=== PATIENT | male | born 1950 | race Caucasian/White ===

== ENCOUNTER 2016-09-22 09:35 | Emergency (ER) | payer MEDICARE, OTHER ==
[2016-09-22] MEDS ORDERED: LIDOCAINE HCL 2% 20 ML VIAL ONE (10:16)
[2016-09-22] MEDS ORDERED: CEPHALEXIN MONOHYDRATE 250 MG CAPSULE PO ONE (10:47)
--- NOTE | 2016-09-22 11:36 | ER PHYSICIAN DOCUMENTATION ---
Physician Documentation [facility] Name:Sanchez Cardenas Age:66 yrs Sex:Male :1950 Arrival Date:09/22/2016 Time:09:35 Bed1 Private MD:Omar Lizarraga ED, John Disposition: 09/22/16 10:29 Discharged to Home/Self Care. Impression: Finger Laceration, Amputation of Fingertip. - Condition is Good. - Discharge Instructions: FINGER LACERATION - LACERATION, Hand. - Prescriptions for Keflex 500 mg Oral - take 1 capsule by ORAL route every 12 hours for 5 days; 10 capsule. - Medical Reconciliation form form. - Follow up: Emergency Department; When: 10 days; Reason: Continuance of care. - Problem is new. - Symptoms have improved. HPI: 09/22 10:24 This 66 yrs old Male presents to ER with complaints of Open Wound To Finger. jm 10:00 The patient or guardian reports injury, a laceration. The complaints affect the palmar jm aspect of distal phalanx of left middle finger and palmar aspect of distal phalanx of left ring finger. 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 . Onset: The symptom(s)/episode began/occurred just prior to arrival. The patient has not experienced similar symptoms in the past. Historical: - Allergies: No known drug Allergies; - Home Meds: 1. BPH med - PMHx: BPH; - PSHx: Unable to obtain; - Tetanus: < 10 years. - Ebola Screening: : Patient negative for fever greater than or equal to 101.5 degrees Fahrenheit, and additional compatible Ebola Virus Disease symptoms. Patient denies exposure to infectious person. Patient denies travel to an Ebola-affected area in the 21 days before illness onset. No symptoms or risks identified at this time. . - Immunization history: Flu Vaccine unknown. - Social history: Smoking status: Patient states former smoker of tobacco. ROS: 10:00 MS/extremity: Positive for laceration, pain, Negative for jm 10:00 Skin: Positive for laceration(s). 10:00 Psych: Negative for drug dependence, alcohol dependence. 10:00 All other systems are negative. Exam: 10:00 Constitutional: The patient appears alert, awake, comfortable. jm 10:00 Musculoskeletal/extremity: Tendon exam: specific tendon testing normal through active and passive range of motion partial amputation of the L long finger distal phalanx on the bruner side. Nail is intact, but the pad is amputated. Pt has the pad with him. There is a 1cm lac to the bruner middle phalanx of the L long finger. There is a 2cm lac to the bruner side of the distal phalanx of the L ring finger as well. . 10:00 Skin: Appearance: Color: pink, as abpve. 10:00 Neuro: Mentation: is normal, Memory: is normal. Vital Signs: 09:45 BP 157 / 83; Pulse 74; Resp 18; Temp 98(TE); Pulse Ox 96% on R/A; tg Laceration: 10:00 Wound Repair of 3cm ( 1.2in ) subcutaneous laceration to palmar aspect of distal jm phalanx of left middle finger. Skin/tissue flap noted.. Distal neuro/vascular/tendon intact. Anesthesia: Digital block administered with 10 mls of 2% lidocaine. Wound prep: Wound irrigation by nurse. Skin closed with 9 5-0 Ethilon using Interrupted sutures. Dressed with tube gauze. Patient tolerated well. 10:00 Wound Repair of 2cm ( 0.8in ) subcutaneous laceration to palmar aspect of distal jm phalanx of left middle finger. Irregularly shaped.. Distal neuro/vascular/tendon intact. Anesthesia: Digital block administered with 1 mls of 2% lidocaine. Wound prep: Wound irrigation by nurse. Skin closed with 6 5-0 Ethilon using Interrupted sutures. Dressed with tube gauze. Patient tolerated well. MDM: 09:39 Patient medically screened. 10:00 Differential diagnosis: laceration w partial amputation. Data reviewed: vital signs, jm nurses notes, and as a result, I will discharge patient. Counseling: I had a detailed discussion with the patient and/or guardian regarding: the historical points, exam findings, and any diagnostic results supporting the discharge/admit diagnosis, the need for outpatient follow up, with the patient's primary care provider. ED course: I was able to sew back on the amputated L long finger pad. I feel that his body will take it. Pt told to RTED in 10 days for suture removal. Pt will leave bandage on for 48 hours. Keflex given for ppx. 09/22 09:39 Order name: Wound Care; Complete Time: : Dispensed Medications: : Drug: Lidocaine (2 %) 10 ml; {Note: Admin by Dr. Bautista.} Route: Infiltration; tg 11:35 Follow up: Response: No adverse reaction tg 10:38 Drug: Keflex 500 mg; Route: PO; sj 11:35 Follow up: Response: No adverse reaction tg Signatures: Gino Randhawa RN RN tg Francisco Bautista MD MD jm Janzen, Sarah
--- NOTE | 2016-09-22 11:36 | ER NURSING DOCUMENTATION ---
Nurse's Notes [facility] Name:Sanchez Cardenas Age:66 yrs Sex:Male :1950 Arrival Date:09/22/2016 Time:09:35 Bed1 Private MD:Omar Lizarraga Diagnosis:Finger Laceration;Amputation of Fingertip Presentation: 09/22 09:37 Acuity: SHELLY 2 tg 09:37 Presenting complaint: Patient states: Pt cut off tip of left middle finger in a snow tg blower. Pt has the tip with him. Transition of care: patient was not received from another setting of care. 09:37 Method Of Arrival: Private Vehicle tg Triage Assessment: 09:40 General: Appears in no apparent distress, Behavior is cooperative. Pain: Complains of tg pain in palmar aspect of distal phalanx of left middle finger and palmar aspect of distal phalanx of left ring finger. Cardiovascular:. Respiratory: Respiratory effort is even, unlabored. Derm: Skin is pink, warm & dry. Injury Description: Amputation sustained to palmar aspect of distal phalanx of left middle finger is complete, was sustained less than 30 minutes ago. Laceration sustained to palmar aspect of distal phalanx of left ring finger. Historical: - Allergies: No known drug Allergies; - Home Meds: 1. BPH med - PMHx: BPH; - PSHx: Unable to obtain; - Tetanus: < 10 years. - Ebola Screening: : Patient negative for fever greater than or equal to 101.5 degrees Fahrenheit, and additional compatible Ebola Virus Disease symptoms. Patient denies exposure to infectious person. Patient denies travel to an Ebola-affected area in the 21 days before illness onset. No symptoms or risks identified at this time. . - Immunization history: Flu Vaccine unknown. - Social history: Smoking status: Patient states former smoker of tobacco. Screenin:47 Infectious Disease Risk Unable to Obtain. Abuse screen: Denies threats or abuse. Denies tg injuries from another. Nutritional screening: No deficits noted. Vital Signs: 09:45 BP 157 / 83; Pulse 74; Resp 18; Temp 98(TE); Pulse Ox 96% on R/A; tg ED Course: 09:36 Patient arrived in ED. lm3 09:36 Omar Lizarraga MD is Private Physician. lm3 09:37 Triage completed. tg 09:39 Francisco Bautista MD is Attending Physician. 09:44 Gino Randhawa, RN is Primary Nurse. tg 09:46 Valuables Remains with patient. tg 10:30 Assist Provider Assist provider with laceration repair on palmar aspect of distal tg phalanx of left ring finger and palmar aspect of distal phalanx of left middle finger that was between 2.6 to 7.5 cm using sutures. Set up tray. Performed by Francisco Bautista MD Dressed with Xeroform, neosporin, tube gauze Patient tolerated well. Wound care to laceration was cleaned with soap and water. Administered Medications: 09:44 Drug: Lidocaine (2 %) 10 ml; {Note: Admin by Dr. Bautista.} Route: Infiltration; tg 11:35 Follow up: Response: No adverse reaction tg 10:38 Drug: Keflex 500 mg; Route: PO; sj 11:35 Follow up: Response: No adverse reaction tg Outcome: 10:29 Discharge ordered by MD. 10:45 Discharged to home ambulatory. tg 10:45 Condition: stable 10:45 Discharge Assessment: Patient awake, alert and oriented x 3. No cognitive and/or functional deficits noted. Patient verbalized understanding of disposition instructions. 10:45 Instructed on discharge instructions, follow up and referral plans. medication usage, wound care, Prescriptions given X 1. 11:35 Patient left the ED. tg 05 16:19 Discharge F/U Call: Spoke with: patient. Are you having any pain? no. Have you filled lc your prescriptions? yes. Did your discharge instructions answer all of your questions? yes Have you made a f/u appointment? yes Overall Care on a scale of 1-10 with 10 being the best care, you rate our care as: Other comments: NO PROBLEMS OR QUESTIONS Signatures: Gino Randhawa RN RN Julia Capone RN RN lc Meyer, John, MD MD jm Janzen, Sarah sj McKibbon-Moore, Lisa lm3
== END 2016-09-22 11:36 | disposition home or self-care (01) ==
LOC: ER 09:35
DX: S61.213A Laceration without foreign body of left middle finger without damage to nail, initial encounter (principal); S61.215A Laceration without foreign body of left ring finger without damage to nail, initial encounter; W29.3XXA Contact with powered garden and outdoor hand tools and machinery, initial encounter; Y92.89 Other specified places as the place of occurrence of the external cause; Y93.H9 Activity, other involving exterior property and land maintenance, building and construction
CPT/HCPCS: 12041; 12042; 13132; 99284